=== PATIENT | male | born 1965 | race Caucasian/White ===

== ENCOUNTER → 2017-12-15 08:45 | Outpatient (CLI) | payer BC, SELFPAY ==
--- NOTE | 2017-12-15 08:49 | US_ITS ---
US abdomen complete HISTORY: Elevated liver enzymes ITS.REASON: ELEVATED LIVER ENZYMES ORDERING PHYSICIAN: Anthony Staton PATIENT AGE: 52 years COMPARISON: 11/03/2012 ultrasound abdomen, TECHNIQUE. Ultrasound entire abdomen. MW FINDINGS:.. PANCREAS:Unremarkable. No obvious mass or abnormal fluid collection. No ductal dilatation LIVER:Minimal fatty changes throughout liver suggested... No mass lesion nor focal lesions at liver.. No intrahepatic biliary ductal dilatation evident . Common duct normal diameter. GALLBLADDER: Trace sludge at gallbladder... No gallstones, gallbladder wall thickening, pericholecystic fluid, or biliary dilatation. RIGHT KIDNEY:Unremarkable. Normal size 10 cm in length. Cortex well-maintained with normal echogenicity.. No hydronephrosis LEFT KIDNEY:Unremarkable. No hydronephrosis. Normal size 10.76 cm length Cortex normal echogenicity and fairly well maintained with only slight thinning of cortex towards the superior pole AORTA:No evidence of aneurysmal dilatation. Mild Atherosclerotic changes noted SPLEEN:Unremarkable. Normal size and echogenicity ASCITES:None demonstrated. IMPRESSION:... 1.. Gallbladder:. Trace sludge. No gallstones. 2. LIVER ... Subtle fatty changes throughout liver. No focal lesions. No biliary ductal dilatation.Common duct normal... 3. K Idneys :. Normal in size. With no hydronephrosis nor mass Perhaps some subtle thinning the cortex towards upper pole left
== END ==
PROVIDERS: Family Provider Internal Medicine; PCP Internal Medicine; Visit Provider Internal Medicine
DX: R74.8 Abnormal levels of other serum enzymes (principal)
CPT/HCPCS: 76700

== ENCOUNTER → 2020-04-18 09:42 | Outpatient (CLI) | payer BC, SELFPAY ==
[2020-04-18 10:55] LABS: Alanine Aminotransferase 37 U/L (12-78); Albumin Level 4.4 g/dl (3.5-5.0); Albumin/Globulin Ratio 1.5 (1.1-1.8); Alkaline Phosphatase 110 U/L (38-126); Anion Gap 11.1 mEq/L (5-15); Aspartate Amino Transferase 23 U/L (17-59); Blood Urea Nitrogen 22 mg/dl (9-20); Calcium 9.9 mg/dl (8.4-10.2); Carbon Dioxide 30 mmol/L (22.0-30.0); Chloride 107 mmol/L (98-107); Chol/HDL Ratio 2.7 (1-3.5); Cholesterol 138 mg/dl (140-200); Estimated Glomerular Filt Rate 70 ml/min (>60); GFR (African American) 85 ML/MIN (>60); Glucose 108 mg/dl (74-100); HDL Cholesterol 51 mg/dl (40-60); Potassium 5.1 mmoL/L (3.5-5.1); Sodium 143 mmol/L (136-145); Total Protein,Serum 7.4 g/dl (6.3-8.2); Triglycerides 157 mg/dl (30-150); VLDL Cholesterol 31 mg/dL (0-40)
[2020-04-18 11:06] LABS: Direct LDL Cholesterol 59.78 mg/dL (100-129)
[2020-04-18 11:25] LABS: Prostate Specific Ag, Diagnost 1.74 ng/ml (0.0-4.0)
== END ==
PROVIDERS: Visit Provider Internal Medicine
DX: I10 Essential (primary) hypertension (principal); E78.5 Hyperlipidemia, unspecified; N40.1 Benign prostatic hyperplasia with lower urinary tract symptoms
CPT/HCPCS: 36415; 80053; 80061; 84153

== ENCOUNTER → 2021-01-28 10:54 | Outpatient (CLI) | payer BC, SELFPAY ==
--- NOTE | 2021-01-28 11:00 | XR_ITS ---
PROCEDURE: XR ANKLE RT MIN 3V CLINICAL INDICATION: RT ANKLE PAIN, TWISTED IT 1 MONTH AGO COMPARISON: No exams were available for comparison FINDINGS: No fracture or dislocation. No lytic or blastic change. There is normal mineralization. The joint spaces are well-preserved. No significant degenerative/arthritic changes. No erosive changes evident. Other findings:There is mild lateral soft tissue swelling. IMPRESSION: Soft tissue swelling otherwise negative Dictated by: Sebastien Skinner MD 01/28/2021 11:57 Sebastien Skinner MD in [place] 01/28/2021 11:57
== END ==
PROVIDERS: PCP Internal Medicine; Visit Provider Internal Medicine
DX: M25.571 Pain in right ankle and joints of right foot (principal)
CPT/HCPCS: 73610

== ENCOUNTER → 2021-05-01 11:53 | Outpatient (CLI) | payer BC, SELFPAY ==
[2021-05-01 13:22] LABS: Chloride 101 mmol/L (98-107)
[2021-05-01 13:24] LABS: Alanine Aminotransferase 59 U/L (12-78); Alkaline Phosphatase 132 U/L (38-126); Anion Gap 12.6 mEq/L (5-15); Aspartate Amino Transferase 41 U/L (17-59); Bilirubin,Total 0.9 mg/dl (0.2-1.3); Blood Urea Nitrogen 21 mg/dl (9-20); Carbon Dioxide 26 mmol/L (22.0-30.0); Estimated Glomerular Filt Rate 78 ml/min (>60); GFR (African American) 95 ML/MIN (>60); Potassium 4.6 mmoL/L (3.5-5.1); Sodium 135 mmol/L (136-145)
[2021-05-01 13:25] LABS: Cholesterol 174 mg/dl (140-200); Triglycerides 243 mg/dl (30-150); VLDL Cholesterol 49 mg/dL (0-40)
[2021-05-01 13:27] LABS: Albumin Level 4.3 g/dl (3.5-5.0); Albumin/Globulin Ratio 1.5 (1.1-1.8); Calcium 8.7 mg/dl (8.4-10.2); Globulin 2.8 g/dL (1.3-3.2); Glucose 94 mg/dl (74-100); Total Protein,Serum 7.1 g/dl (6.3-8.2)
[2021-05-01 13:36] LABS: Direct LDL Cholesterol 77.51 mg/dL (100-129)
[2021-05-01 14:19] LABS: Prostate Specific Ag Screen 1.8 ng/ml (0.0-4.0)
[2021-05-01 16:29] LABS: Chol/HDL Ratio 3.8 (1-3.5); HDL Cholesterol 46 mg/dl (40-60)
== END ==
PROVIDERS: Visit Provider Internal Medicine
DX: I10 Essential (primary) hypertension (principal); E78.5 Hyperlipidemia, unspecified; N40.1 Benign prostatic hyperplasia with lower urinary tract symptoms; Z12.5 Encounter for screening for malignant neoplasm of prostate
CPT/HCPCS: 80053; 80061; G0103

== ENCOUNTER 2021-08-01 10:47 | Emergency (ER) | payer OTHER, BC, SELFPAY ==
[2021-08-01 10:50] VITALS: BP 166/88; PULSE 67; RESP 18; TEMP 36.7; O2SAT 100; BMI 31.0
--- NOTE | 2021-08-01 11:25 | HMH.EDUTC ---
[facility] [place] Impression: Laceration of finger of left hand Qualifiers: Encounter type: initial encounter Finger: index finger Damage to nail status: without damage Foreign body presence: without foreign body Qualified Code(s): S61.211A - Laceration without foreign body of left index finger without damage to nail, initial encounter Disposition: Home, Self-Care Condition on Discharge: Good Instructions: DI for Laceration Repair-Skin Glue Additional Instructions: Keep clean and dry. Do not submerge in water. Watch for signs of infection. Referrals: Anthony Staton MD [Primary Care Provider] - Time of Disposition: 11:48 Medical Decision Making - Sean Inquiry Pt receiving controlled substance: No Vital Signs: 08/01/21 10:50 Temperature 98.1 F Temperature Source Oral Pulse Rate [Right Brachial] 67 Respiratory Rate 18 Blood Pressure [Right Arm] 166/88 H Blood Pressure Mean [Right Arm] 114 Blood Pressure Source [Right Arm] Automatic Cuff Blood Pressure Position [Right Arm] Sitting 02 Sat by Pulse Oximetry 100 Oxygen Delivery Method Room Air [facility] - General Stated complaint: WC 08/01 finger laceration Time Seen by Provider: 08/01/21 11:25 Mode of Arrival: Ambulatory Source of Information: Patient Limitations: No Limitations Description of Symptoms (Recalled from Triage Doc. by RN): PATIENT C/O LACERATION TO LEFT INDEX FINGER AFTER CUTTING IT ON A CONVEYER BELT AT WORK TODAY HEENT Symptoms (Recalled from RN notes): No Resp Symptoms (Recalled from RN notes): No Skin Symptoms (Recalled from RN notes): Yes MS Symptoms (Recalled from RN notes): No Functional Status (Recalled from RN notes): WNL - Related Data Allergies Allergy/AdvReac Type Severity Reaction Status Date / Time doxycycline Allergy Verified 08/01/21 10:59 - Worker's Comp Is this a Worker's Comp case?: No [facility] History - Hepatitis A Screen Attestation statement:: This patient has been screened for Hepatitis A risk factors. I have reviewed the patient's past medical history: Yes ROS Obtained: Yes All systems reviewed & no additional complaints - Integumentary/Breasts Skin/Breast: Reports other (laceration left pointer finger) Physical Exam - General General appearance: alert, in no apparent distress - Head Head exam: atraumatic, normocephalic - Respiratory Respiratory exam: Present: normal lung sounds bilaterally - Cardiovascular Cardiovascular exam: Present: regular rate, normal rhythm - Neurological Exam Neurological exam: Present: alert, oriented X3 - Psychiatric Psychiatric exam: Present: normal affect, normal mood - Skin Skin exam: Present: other (laceration left index finger) Procedures - Laceration Laceration 1 Site: finger Side (If applicable): left Size (cm): 2 Description: linear Depth: simple, single layer Pre-repair: wound explored, irrigated extensively, deep structures intact Skin layer closed with: Dermabond
[2021-08-01 11:46] VITALS: BP 166/88; PULSE 67; RESP 18; TEMP 36.7; O2SAT 100
== END 2021-08-01 11:50 | disposition home or self-care (01) ==
PROVIDERS: Emergency Provider Physician Assistant; PCP Internal Medicine
DX: S61.211A Laceration without foreign body of left index finger without damage to nail, initial encounter (principal); W31.89XA Contact with other specified machinery, initial encounter; Y92.63 Factory as the place of occurrence of the external cause; Y99.0 Civilian activity done for income or pay; Z88.1 Allergy status to other antibiotic agents
CPT/HCPCS: 12001; 99213; G0463

== ENCOUNTER 2023-03-18 11:37 | Outpatient (CLI) | payer BC, SELFPAY ==
[2023-03-18 11:56] LABS: Basophils # 0.1 K/mm3 (0-0.2); Basophils % 1.2 % (0.1-2.0); Eosinophils # 0.2 K/mm3 (0.0-0.4); Eosinophils % 2.3 % (0.1-12.0); Hematocrit 47.4 % (42.0-52.0); Hemoglobin 15.7 g/dL (14.1-18.0); Lymphocytes # 2.7 K/mm3 (0.7-4.5); Lymphocytes % 28.1 % (10-50); Mean Corpuscular HGB Conc 33.1 g/dL (31.8-35.4); Mean Corpuscular Hemoglobin 27.4 pg (27.0-31.2); Mean Corpuscular Volume 82.6 fl (80-94); Mean Platelet Volume 8.7 fl (7.4-10.4); Monocytes # 0.5 K/mm3 (0.1-1.0); Monocytes % 5.1 % (1.7-9.3); Neutrophils # 6.1 K/mm3 (1.8-7.8); Neutrophils % 63.3 % (37.0-80.0); Platelet Count 274 K/mm3 (142-424); Red Blood Count 5.74 M/mm3 (4.60-6.20); Red Cell Distribution Width 13.6 % (11.5-17.5); White Blood Count 9.6 K/mm3 (4.8-10.8)
[2023-03-18 12:44] LABS: Alanine Aminotransferase 49 U/L (12-78); Albumin Level 4.1 g/dl (3.5-5.0); Albumin/Globulin Ratio 1.6 (1.1-1.8); Alkaline Phosphatase 157 U/L (38-126); Anion Gap 9.2 mEq/L (5-15); Aspartate Amino Transferase 30 U/L (17-59); Bilirubin,Total 0.8 mg/dl (0.2-1.3); Blood Urea Nitrogen 17 mg/dl (9-20); Calcium 8.7 mg/dl (8.4-10.2); Carbon Dioxide 29 mmol/L (22.0-30.0); Chloride 103 mmol/L (98-107); Chol/HDL Ratio 4.7 (1-3.5); Cholesterol 170 mg/dl (140-200); Estimated Glomerular Filt Rate 63 ml/min (>60); GFR (African American) 76 ML/MIN (>60); Globulin 2.6 g/dL (1.3-3.2); Glucose 136 mg/dl (74-100); HDL Cholesterol 36 mg/dl (40-60); Potassium 5.2 mmoL/L (3.5-5.1); Sodium 136 mmol/L (136-145); Total Protein,Serum 6.7 g/dl (6.3-8.2); Triglycerides 258 mg/dl (30-150); VLDL Cholesterol 52 mg/dL (0-40)
[2023-03-18 12:55] LABS: Direct LDL Cholesterol 80.17 mg/dL (100-129)
== END 2023-03-18 23:59 ==
LOC: LAB.DROPOF 11:37
PROVIDERS: PCP Internal Medicine; Visit Provider Internal Medicine
DX: I10 Essential (primary) hypertension (principal); E78.5 Hyperlipidemia, unspecified; N40.1 Benign prostatic hyperplasia with lower urinary tract symptoms; Q74.2 Other congenital malformations of lower limb(s), including pelvic girdle; Z12.5 Encounter for screening for malignant neoplasm of prostate
CPT/HCPCS: 80053; 80061; 85025; G0103

== ENCOUNTER 2023-04-25 13:12 | Outpatient (CLI) | payer BC, SELFPAY ==
[2023-04-25 16:28] LABS: Calcium 9.5 mg/dl (8.4-10.2); Glucose 99 mg/dl (74-100)
[2023-04-25 16:30] LABS: Anion Gap 13.5 mEq/L (5-15); Blood Urea Nitrogen 28 mg/dl (9-20); Carbon Dioxide 29 mmol/L (22.0-30.0); Chloride 103 mmol/L (98-107); Estimated Glomerular Filt Rate 63 ml/min (>60); GFR (African American) 76 ML/MIN (>60); Potassium 4.5 mmoL/L (3.5-5.1); Sodium 141 mmol/L (136-145)
== END 2023-04-25 23:59 ==
LOC: LAB.DROPOF 13:13
PROVIDERS: PCP Internal Medicine; Visit Provider Internal Medicine
DX: I10 Essential (primary) hypertension (principal); E11.9 Type 2 diabetes mellitus without complications
CPT/HCPCS: 80048

== ENCOUNTER 2023-10-05 11:07 | Outpatient (CLI) | payer BC, SELFPAY ==
[2023-10-05 12:04] LABS: Alanine Aminotransferase 40 U/L (12-78); Albumin Level 3.8 g/dl (3.5-5.0); Albumin/Globulin Ratio 1.4 (1.1-1.8); Alkaline Phosphatase 98 U/L (38-126); Anion Gap 10.3 mEq/L (5-15); Aspartate Amino Transferase 31 U/L (17-59); Bilirubin,Total 0.8 mg/dl (0.2-1.3); Blood Urea Nitrogen 22 mg/dl (9-20); Carbon Dioxide 29 mmol/L (22.0-30.0); Chloride 105 mmol/L (98-107); Chol/HDL Ratio 3.2 (1-3.5); Cholesterol 154 mg/dl (140-200); Estimated Glomerular Filt Rate 69 ml/min (>60); GFR (African American) 84 ML/MIN (>60); Globulin 2.7 g/dL (1.3-3.2); Glucose 84 mg/dl (74-100); HDL Cholesterol 48 mg/dl (40-60); Potassium 4.3 mmoL/L (3.5-5.1); Sodium 140 mmol/L (136-145); Total Protein,Serum 6.5 g/dl (6.3-8.2); Triglycerides 131 mg/dl (30-150); VLDL Cholesterol 26 mg/dL (0-40)
[2023-10-05 12:15] LABS: Direct LDL Cholesterol 65.34 mg/dL (100-129)
[2023-10-05 12:39] LABS: Creatinine,Urine Random 197 mg/dL (Not Estab.); Microalbumin < 6.000 mg/L (0-16.7)
[2023-10-05 13:57] LABS: Hemoglobin A1C 5.9 % (4.0-6.0)
== END 2023-10-05 23:59 | disposition home or self-care (01) ==
LOC: LAB.DROPOF 11:07
PROVIDERS: PCP Internal Medicine; Visit Provider Internal Medicine
DX: E11.9 Type 2 diabetes mellitus without complications (principal); E78.5 Hyperlipidemia, unspecified; Z79.84 Long term (current) use of oral hypoglycemic drugs
CPT/HCPCS: 80053; 80061; 82043; 82570; 83036

== ENCOUNTER 2024-04-02 15:18 | Outpatient (CLI) | payer BC, SELFPAY ==
[2024-04-02 14:19] LABS: Basophils # 0.1 K/mm3 (0-0.2); Basophils % 1.2 % (0.1-2.0); Eosinophils # 0.2 K/mm3 (0.0-0.4); Eosinophils % 2.2 % (0.1-12.0); Hematocrit 48.8 % (42.0-52.0); Hemoglobin 15.8 g/dL (14.1-18.0); Lymphocytes # 2.3 K/mm3 (0.7-4.5); Lymphocytes % 25.1 % (10-50); Mean Corpuscular HGB Conc 32.4 g/dL (31.8-35.4); Mean Corpuscular Hemoglobin 26.3 pg (27.0-31.2); Mean Corpuscular Volume 81.3 fl (80-94); Mean Platelet Volume 10.9 fl (7.4-10.4); Monocytes # 0.5 K/mm3 (0.1-1.0); Monocytes % 5.1 % (1.7-9.3); Platelet Count 295 K/mm3 (142-424); Red Cell Distribution Width 14.2 % (11.5-17.5); White Blood Count 9.2 K/mm3 (4.8-10.8)
[2024-04-02 15:06] LABS: Albumin Level 4.3 g/dl (3.5-5.0); Chloride 102 mmol/L (98-107); Potassium 4.5 mmoL/L (3.5-5.1); Sodium 139 mmol/L (136-145)
[2024-04-02 15:09] LABS: Alanine Aminotransferase 48 U/L (12-78); Albumin/Globulin Ratio 1.8 (1.1-1.8); Alkaline Phosphatase 112 U/L (38-126); Anion Gap 15.5 mEq/L (5-15); Aspartate Amino Transferase 33 U/L (17-59); Bilirubin,Total 0.6 mg/dl (0.2-1.3); Blood Urea Nitrogen 29 mg/dl (9-20); Carbon Dioxide 26 mmol/L (22.0-30.0); Cholesterol 152 mg/dl (140-200); Estimated Glomerular Filt Rate 63 ml/min (>60); GFR (African American) 76 ML/MIN (>60); Globulin 2.4 g/dL (1.3-3.2); Total Protein,Serum 6.7 g/dl (6.3-8.2); Triglycerides 143 mg/dl (30-150); VLDL Cholesterol 29 mg/dL (0-40)
[2024-04-02 15:10] LABS: Calcium 8.9 mg/dl (8.4-10.2); Chol/HDL Ratio 3.1 (1-3.5); Glucose 88 mg/dl (74-100); HDL Cholesterol 49 mg/dl (40-60)
[2024-04-02 15:20] LABS: Direct LDL Cholesterol 68.63 mg/dL (100-129)
[2024-04-02 15:40] LABS: Prostate Specific Ag Screen 1.6 ng/ml (0.0-4.0)
[2024-04-03 01:32] LABS: Hemoglobin A1C 6.2 % (4.0-6.0)
== END 2024-04-02 23:59 | disposition home or self-care (01) ==
LOC: LAB.DROPOF 15:18
PROVIDERS: PCP Internal Medicine; Visit Provider Internal Medicine
DX: I10 Essential (primary) hypertension (principal); E11.9 Type 2 diabetes mellitus without complications; E78.5 Hyperlipidemia, unspecified; Z12.5 Encounter for screening for malignant neoplasm of prostate
CPT/HCPCS: 80053; 80061; 83036; 85025; G0103

== ENCOUNTER 2024-09-11 15:22 | Outpatient (CLI) | payer BC, SELFPAY ==
[2024-09-11 14:56] LABS: Alanine Aminotransferase 39 U/L (12-78); Albumin Level 4.4 g/dl (3.5-5.0); Albumin/Globulin Ratio 1.8 (1.1-1.8); Alkaline Phosphatase 108 U/L (38-126); Anion Gap 17.7 mEq/L (5-15); Aspartate Amino Transferase 29 U/L (17-59); Bilirubin,Total 0.7 mg/dl (0.2-1.3); Blood Urea Nitrogen 27 mg/dl (9-20); Calcium 9.2 mg/dl (8.4-10.2); Carbon Dioxide 27 mmol/L (22.0-30.0); Chloride 99 mmol/L (98-107); Cholesterol 154 mg/dl (140-200); Creatinine,Serum 1.10 mg/dl (0.66-1.25); Estimated Glomerular Filt Rate 69 ml/min (>60); GFR (African American) 84 ML/MIN (>60); Globulin 2.4 g/dL (1.3-3.2); Glucose 84 mg/dl (74-100); HDL Cholesterol 40 mg/dl (40-60); Potassium 4.7 mmoL/L (3.5-5.1); Sodium 139 mmol/L (136-145); Total Protein,Serum 6.8 g/dl (6.3-8.2); Triglycerides 204 mg/dl (30-150)
[2024-09-11 15:11] LABS: Hemoglobin A1C 7.3 % (4.0-6.0)
== END 2024-09-11 23:59 | disposition home or self-care (01) ==
LOC: LAB.DROPOF 15:23
PROVIDERS: PCP Internal Medicine; Visit Provider Internal Medicine
DX: I10 Essential (primary) hypertension (principal); E11.9 Type 2 diabetes mellitus without complications; E78.5 Hyperlipidemia, unspecified
CPT/HCPCS: 80053; 80061; 83036